=== PATIENT | male | born 1995 | race Caucasian/White ===

== ENCOUNTER 2016-09-25 20:42 | Emergency (ER) | payer BC, OTHER ==
[~2016-09-25] VITALS: Ht 165.1 cm; Wt 54.4 kg
[2016-09-25 21:48] LABS: HEMATOCRIT 43.2 % (38.0-50.0); MCH 31.8 PG (29.0-34.0); MCHC 34.7 G/DL (30.0-36.0); MCV 91.7 FL (86-99); MEAN PLAT.VOLUME 11.1 uM^3 (9.0-12.4); PLATELET COUNT 203 K/uL (156-360); RBC DIS.WIDTH-CV 11.8 % (11.8-14.6); RBC DIS.WIDTH-SD 38.9 % (39-53); RED BLOOD COUNT 4.71 M/uL (4.00-5.50); WHITE BLOOD COUNT 7.2 K/uL (4.1-10.2)
[2016-09-25 22:00] LABS: CHLORIDE 104 mEq/L (99-109); POTASSIUM 3.9 mEq/L (3.7-5.4); SODIUM 140 mEq/L (136-147)
[2016-09-25 22:02] LABS: GLUCOSE 139 mg/dL (70-99)
[2016-09-25 22:03] LABS: ANION GAP 11 MEQ/L (2-14)
[2016-09-25 22:04] LABS: TOTAL BILIRUBIN 0.5 mg/dL (0.0-1.0)
[2016-09-25 22:05] LABS: ALKALINE PHOSPHATASE 58 IU/L (3-129)
[2016-09-25] MEDS ORDERED: DELTASONE20 M1 PO (22:05)
[2016-09-25] MEDS ORDERED: PHENERGAN-CODE120 ML PO (22:05)
[2016-09-25 22:07] LABS: GFR ESTIMATE (CALCULATED) > 59 mL/min/; UREA NITROGEN (BUN) 12 mg/dL (9-23)
[2016-09-25 22:12] LABS: ADD MIUA? YES; BILIRUBIN NEGATIVE; BLOOD NEGATIVE; COLOR YELLOW ((YELLOW)); GLUCOSE (STRIP) NEGATIVE; KETONES NEGATIVE; LEUKOCYTES MODERATE; NITRITE NEGATIVE; PH, URINE 7.5 (5-8); PROTEIN (STRIP) TRACE; SPECIFIC GRAVITY 1.018 (1.000-1.030); UROBILINOGEN 0.2 MG/DL (0.2-1.0)
[2016-09-25 22:24] VITALS: BP 115/78
[2016-09-25 22:41] LABS: BACTERIA NONE SEEN; CASTS NONE SEEN /LPF; CRYSTALS NONE SEEN; EPITHELIAL CELLS NONE SEEN; MUCUS 2+; RED BLOOD CELLS 0-5 /HPF (0-5); UCUL ADDED? NO; WHITE BLOOD CELLS 15-20 /HPF (0-5)
== END 2016-09-25 22:25 | disposition home or self-care (01) ==
LOC: EXP 20:42 → EME 20:42 → EXP 22:25
DX: J06.9 Acute upper respiratory infection, unspecified (principal); J45.31 Mild persistent asthma with (acute) exacerbation; R11.2 Nausea with vomiting, unspecified; F17.200 Nicotine dependence, unspecified, uncomplicated
CPT/HCPCS: 71020; 80053; 81003; 85027; 99281; 99284